=== PATIENT | male | born 1950 | race Caucasian/White ===

== ENCOUNTER → 2019-03-01 09:45 | Outpatient (POV) | payer MEDICARE, MEDICAID, SELFPAY | PROVIDERS: PCP Nurse Practitioner Family; Visit Provider Nurse Practitioner Family | DX: Z00.00 Encounter for general adult medical examination without abnormal findings (principal) ==

== ENCOUNTER 2020-02-10 18:22 | Emergency (ER) | payer MEDICARE, MEDICAID, SELFPAY ==
[2020-02-10 18:29] VITALS: BP 143/84; PULSE 75; RESP 18; TEMP 36.7; O2SAT 98; BMI 35.4
[2020-02-10 18:46] VITALS: BP 143/84; PULSE 75; RESP 18; TEMP 36.7; O2SAT 98; BMI 35.3
--- NOTE | 2020-02-10 18:49 | HMH.EDUTC ---
[facility] [place] Impression: Laceration Disposition: Home, Self-Care Condition on Discharge: Good Instructions: How to Care for a Laceration After Repair, Laceration Repair, DI for Laceration Repair -- Simple Additional Instructions: You have required stitches today. Please read the following instructions so you know how to care for them: 1. Keep wound area dry for the first 24 hours. 2 May clean gently with mild soap and water, after 48 hours to prevent crusting over suture knots. 3. You may shower if your provider gives permission but do not take a bath until the skin is healed.. 4. Never leave a wet dressing or Band-Aid on your stitches as this allows bacteria to reach the area and may cause infection. Band-aids can cause the wound to sweat and not recommended to wear for long periods of time No Bandaids on wound Watch for signs of infection: Increasing redness, tenderness or warmth around the suture site Unusual swelling around the site Appearance of pus around each suture or any red streaks Fever If you develop any of the above signs or symptoms of infection, Follow up with Family Physician immediately 5. Suture removal in __7-10__days 6. Return to [facility] or follow up with family doctor for removal. This can be done by any medical provider during regular hours on Friday through Friday, by appointment. Follow up with family doctor Straight to ER if any life threatening symptoms Referrals: Yohana Mojica APRN [Primary Care Provider] - As needed Time of Disposition: 19:37 Medical Decision Making - Raudel Inquiry Pt receiving controlled substance: No Raudel was queried for this patient: No Vital Signs: 02/10/20 18:29 02/10/20 18:46 Temperature 98.0 F 98.0 F Temperature Source Oral Oral Pulse Rate [Radial] 75 75 Respiratory Rate 18 18 Blood Pressure [Right Arm] 143/84 H 143/84 H Blood Pressure Mean [Right Arm] 103 103 Blood Pressure Source [Right Arm] Automatic Cuff Automatic Cuff Blood Pressure Position [Right Arm] Sitting Sitting 02 Sat by Pulse Oximetry 98 98 Oxygen Delivery Method Room Air Room Air - Reevaluation(s) Time: 18:56 Reevaluation #1: Reports last tetanus about a year ago [facility] [place] - General Stated complaint: AO [id number]@1800 lac to L Hand Time Seen by Provider: 02/10/20 18:49 Mode of Arrival: Ambulatory Source of Information: Patient Limitations: No Limitations Description of Symptoms (Recalled from Triage Doc. by RN): left hand cut by a ice grinder - History of Present Illness Provider Complaint: Patient states that he was using a ice grinder at home and slipped and the top of his left hand hit the blade on the wheel causing laceration to the top of his left hand States that he immediately applied pressure and knew it would have to have stiches so he came in - Related Data Home Medications Medication Instructions Recorded Confirmed lisinopriL [Lisinopril 10mg Tab] 10 mg PO DAILY 04/12/19 02/10/20 Allergies Allergy/AdvReac Type Severity Reaction Status Date / Time No Known Allergies Allergy Verified 04/12/19 07:23 [facility] History - Hepatitis A Screen Attestation statement:: This patient has been screened for Hepatitis A risk factors. I have reviewed the patient's past medical history: Yes Medical History: Reports:: Hypertension Denies:: Diabetes Mellitus Type 1, Diabetes Mellitus Type 2, Internal Pacemaker, Lung Disease, Seizures Other Surgeries: Yes: Other. No: Pacemaker - Social History Substance Use Type: denies use Occupational Status: other Family Hx:: No significant family history ROS Obtained: Yes All systems reviewed & no additional complaints, Yes Systems reviewed as appropriate & no additional complaints - Allergic/Immunologic Comments: laceration to top of left hand Physical Exam - General General appearance: alert, in no apparent distress - Respiratory Respiratory exam: Present: normal lung sounds bilaterally. Absent: respiratory
[2020-02-10 19:39] VITALS: BP 143/84; PULSE 75; RESP 18; TEMP 36.7; O2SAT 98
== END 2020-02-10 19:41 | disposition home or self-care (01) ==
PROVIDERS: Emergency Provider Nurse Practitioner; PCP Nurse Practitioner Family
DX: S61.412A Laceration without foreign body of left hand, initial encounter (principal); W31.89XA Contact with other specified machinery, initial encounter; Y92.018 Other place in single-family (private) house as the place of occurrence of the external cause; I10 Essential (primary) hypertension; Z79.899 Other long term (current) drug therapy
CPT/HCPCS: 12001; 99201

== ENCOUNTER 2021-05-15 11:50 | Emergency (ER) | payer MEDICARE, MEDICAID, SELFPAY ==
[2021-05-15 13:12] VITALS: BP 177/100; PULSE 64; RESP 18; TEMP 36.8; O2SAT 97; BMI 35.2
--- NOTE | 2021-05-15 13:27 | HMH.EDUTC ---
[facility] [place] Clinical Impression: Cyst of face Cellulitis Qualifiers: Site of cellulitis: face Qualified Code(s): L03.211 - Cellulitis of face Disposition: Home, Self-Care Condition on Discharge: Good Instructions: Cellulitis, Boil Additional Instructions: Apply warm wet compresses to the affected sites three or four times per day for 15 minutes as tolerated. Take the antibiotics as directed. Apply the ointment to the site as directed. Follow up with your regular doctor. GO TO THE ER FOR ANY WORSENING SYMPTOMS OR CONCERNS Referrals: Provider,Referral, MD [Primary Care Provider] - Time of Disposition: 14:05 Medical Decision Making - Medical Records Medical records reviewed: No: I reviewed the patient's medical records. - Raudel Inquiry Pt receiving controlled substance: No Vital Signs: 05/15/21 13:12 05/15/21 14:24 Temperature 98.2 F 98.2 F Temperature Source Oral Temporal Artery Scan Pulse Rate 64 Pulse Rate [Left] 64 Respiratory Rate 18 16 Blood Pressure 177/100 H Blood Pressure [Right Arm] 177/100 H Blood Pressure Mean [Right Arm] 125 Blood Pressure Position Sitting 02 Sat by Pulse Oximetry 97 Oxygen Delivery Method Room Air Orders (Tests/Meds): ED MEDICATIONS Discontinued Medications Generic Name Dose Route Start Last Admin Trade Name Freq PRN Reason Stop Dose Admin Ceftriaxone Sodium 1 gm 05/15/21 14:05 05/15/21 14:10 Ceftriaxone 1gm Vial IM 05/15/21 14:06 1 gm ONCE ONE Administration Lidocaine HCl 0 ml 05/15/21 14:05 05/15/21 14:10 Lidocaine 1% 5ml Pf Vial IM 05/15/21 14:06 5 ml ONCE ONE Administration ORDERS Category Date Time Status Wound Culture and Gram Stain Stat Micro 05/14/21 13:36 Results [facility] [place] HPI - General Stated complaint: lump under left eye, getting larger Time Seen by Provider: 05/15/21 13:28 Mode of Arrival: Ambulatory Source of Information: Patient Limitations: No Limitations Description of Symptoms (Recalled from Triage Doc. by RN): pt has had a growth on the innner corner of his lower L eyelid. the past few days it has enlarged twice the size and is now oozing greenish/purulent drainage. HEENT Symptoms (Recalled from RN notes): Yes (infected growth on L lower eyelid with purulent drainage) Resp Symptoms (Recalled from RN notes): No Skin Symptoms (Recalled from RN notes): No MS Symptoms (Recalled from RN notes): No Functional Status (Recalled from RN notes): na - History of Present Illness Provider Complaint: He states that he has a painful swollen area near the medial corner of his left eye. He has had a lesion there for a long time, but over the past few days it seems like it has got infected and it has became inflamed and larger. It is draining some yellowish drainage. He denies any eye pain. He denies any change in his vision. He denies any fever or chills or feeling bad. - Related Data Home Medications Medication Instructions Recorded Confirmed No Known Home Medications 05/15/21 05/15/21 Allergies Allergy/AdvReac Type Severity Reaction Status Date / Time No Known Allergies Allergy Verified 05/15/21 14:22 - Worker's Comp Is this a Worker's Comp case?: No [facility] History - Hepatitis A Screen Drug use history?: No High risk sexual behaviors?: No History of sexually transmitted infection?: No Currently employed?: No Childcare worker?: No Do you have indoor plumbing?: Yes Do you have electricity?: Yes Attestation statement:: This patient has been screened for Hepatitis A risk factors. I have reviewed the patient's past medical history: Yes Medical History: Reports:: Hypertension Denies:: Diabetes Mellitus Type 1, Diabetes Mellitus Type 2, Internal Pacemaker, Lung Disease, Seizures Other Surgeries: Yes: Other. No: Pacemaker - Social History Alcohol Intake: never Substance Use Type: denies use Occupational Status: other Family Hx:: No significant family history ROS O
[2021-05-15 14:24] VITALS: BP 177/100; PULSE 64; RESP 16; TEMP 36.8; O2SAT 97
== END 2021-05-15 14:25 | disposition home or self-care (01) ==
PROVIDERS: Emergency Provider Nurse Practitioner Family
DX: L03.211 Cellulitis of face (principal)
CPT/HCPCS: 10060; G0463; 87070; 87077; 87186; 87205; 96372; 99203

== ENCOUNTER 2023-11-04 06:40 | Day surgery (SDC) | payer MEDICARE, MEDICAID, SELFPAY ==
[2023-10-31 12:52] VITALS: BMI 33.7
[2023-11-04 06:57] VITALS: BP 165/88; PULSE 58; RESP 16; TEMP 36.3; O2SAT 97
[2023-11-04] MEDS: CYCLOPENTOLATE 2% OPHTH SOLN 2ML BOTTLE OP ×3 (07:00→07:10)
[2023-11-04] MEDS: PHENYLEPHRINE 2.5% OPHTH SOLN 2ML 0.0500000000000000028 ML OP ×3 (07:00→07:10)
[2023-11-04] MEDS: TETRACAINE 0.5% OPTH SOL 15ML OP ×3 (07:00→07:10)
[2023-11-04 08:18] VITALS: BP 165/95; PULSE 59; RESP 16; O2SAT 99
[2023-11-04] MEDS: MIDAZOLAM 2MG/2ML VIAL 1 MG IV (08:18)
[2023-11-04] MEDS: TOBRAMYCIN/DEX OPTH SUSP 2.5ML OP (08:19)
[2023-11-04] MEDS: LIDOCAINE 1% PF 2ML AMPULE 2 ML IJ (08:19)
[2023-11-04] MEDS: TIMOLOL 0.5% OPTH SOLN 5ML OP (08:20)
[2023-11-04] MEDS: SODIUM CHLORIDE 0.9% 10ML FLUSH SYRINGE 10 ML IV (08:20)
[2023-11-04 08:23] VITALS: BP 164/92; PULSE 57; RESP 16; O2SAT 96
[2023-11-04 08:28] VITALS: BP 160/94; PULSE 58; RESP 16; O2SAT 97
[2023-11-04] MEDS: MIDAZOLAM 2MG/2ML VIAL 2 MG (08:28)
[2023-11-04 08:33] VITALS: BP 161/92; PULSE 56; RESP 16; O2SAT 96
[2023-11-04 08:40] VITALS: BP 154/96; PULSE 98; RESP 16; TEMP 36.4; O2SAT 99
--- NOTE | 2023-11-04 11:18 | HMH.PROCNOTE ---
[facility] Procedure Note Date: 11/04/23 Time: 11:18 Procedure Note:: Preoperative Diagnosis: Cataract combined NS Cortical Complex [Left] Eye Postop diagnosis: same Operation: Microscopic phacoemulsification with intraocular lens implant [Left] Eye Specimen: None Blood Loss: None The patient was examined in the office with a complaint of poor vision in the [left] eye. The patient reports that this interferes with ADLs such as reading, watching TV and/or driving or the vision is like looking through a foggy haze and is very troubling. The patient was examined and found to have a visually significant cataract with best corrected vision of [20/400] by refraction and/or glare testing. Treatment options, risks and benefits were explained and the patient elected to have cataract surgery in an attempt to improve their vision. The patient had the eye anesthetized with topical tetracaine, the eye ways prepped and draped in the usual fashion for cataract surgery. A paracentesis and a temporal keratotomy were made. 0.2cc of 1% lidocaine PF was placed into the anterior chamber. And aqueous/viscoelastic exchange was done and a 360 degree capsulorexis was performed. Through hydrodissection and delineation with BSS on a cannula was done. The lens nucleus was phecoemulsified with CDE of [12.24]. Residual cortical material was removed using automated I&A The capsular bag was deepened with viscoelastica and a PCIOL was placed in the capsular bag with good centration and stability. Residual viscoelastic was removed using automated I&A. The keratotomy incision was hydrated with BSS on a cannula. The wound were checked and found to be water tight. IOP was checked digitally and adjusted as needed so as not to be too high. 1 drop of timolol 0.5%, ofloxacin, prednisolone acetate and ketorolac was instilled and eye shield taped over the eye. The patient was taken to recovery in good condition and will be seen postoperatively.
== END 2023-11-04 08:50 | disposition home or self-care (01) ==
PROVIDERS: PCP Nurse Practitioner Family; Visit Provider Ophthalmology
PROC: (CPT 66984; principal; 2023-11-04 08:00)
DX: H25.812 Combined forms of age-related cataract, left eye (principal)
CPT/HCPCS: 66984; V2632

== ENCOUNTER 2023-11-25 08:33 | Day surgery (SDC) | payer MEDICARE, MEDICAID, SELFPAY ==
[2023-11-20 13:36] VITALS: BMI 33.7
[2023-11-25] VITALS (8 sets, daily range): BP systolic 146–180; BP diastolic 77–103; PULSE 56–64; RESP 18; TEMP 36.3–36.6; O2SAT 93–99
[2023-11-25] MEDS: TETRACAINE 0.5% OPTH SOL 15ML OP ×3 (09:14→09:15)
[2023-11-25] MEDS: PHENYLEPHRINE 2.5% OPHTH SOLN 2ML OP ×3 (09:14→09:16)
[2023-11-25] MEDS: CYCLOPENTOLATE 2% OPHTH SOLN 2ML BOTTLE OP ×3 (09:14→09:15)
[2023-11-25] MEDS: MIDAZOLAM 2MG/2ML VIAL 1 MG IV (10:01)
[2023-11-25] MEDS: SODIUM CHLORIDE 0.9% 10ML FLUSH SYRINGE 10 ML IV (10:10)
[2023-11-25] MEDS: LIDOCAINE 1% PF 2ML AMPULE 2 ML IJ (10:11)
[2023-11-25] MEDS: TIMOLOL 0.5% OPTH SOLN 5ML OP (10:11)
[2023-11-25] MEDS: TOBRAMYCIN/DEX OPTH SUSP 2.5ML OP (10:11)
--- NOTE | 2023-11-25 12:30 | P.PCN_ITS ---
[facility] Procedure Note Date: 11/25/23 Time: 12:31 Procedure Note:: Preoperative Diagnosis: Cataract combined NS Cortical Complex [Right] Eye Postop diagnosis: same Operation: Microscopic phacoemulsification with intraocular lens implant [Right] Eye Specimen: None Blood Loss: None The patient was examined in the office with a complaint of poor vision in the [right] eye. The patient reports that this interferes with ADLs such as reading, watching TV and/or driving or the vision is like looking through a foggy haze and is very troubling. The patient was examined and found to have a visually significant cataract with best corrected vision of [20/400] by refraction and/or glare testing. Treatment options, risks and benefits were explained and the patient elected to have cataract surgery in an attempt to improve their vision. The patient had the eye anesthetized with topical tetracaine, the eye ways prepped and draped in the usual fashion for cataract surgery. A paracentesis and a temporal keratotomy were made. 0.2cc of 1% lidocaine PF was placed into the anterior chamber. And aqueous/viscoelastic exchange was done and a 360 degree capsulorexis was performed. Through hydrodissection and delineation with BSS on a cannula was done. The lens nucleus was phecoemulsified with CDE of [12.36]. Residual cortical material was removed using automated I&A The capsular bag was deepened with viscoelastica and a PCIOL was placed in the capsular bag with good centration and stability. Residual viscoelastic was removed using automated I&A. The keratotomy incision was hydrated with BSS on a cannula. The wound were checked and found to be water tight. IOP was checked digitally and adjusted as needed so as not to be too high. 1 drop of timolol 0.5%, ofloxacin, prednisolone acetate and ketorolac was instilled and eye shield taped over the eye. The patient was taken to recovery in good condition and will be seen postoperatively.
== END 2023-11-25 10:36 | disposition home or self-care (01) ==
PROVIDERS: PCP Nurse Practitioner Family; Visit Provider Ophthalmology
PROC: (CPT 66984; principal; 2023-11-25 10:30)
DX: H25.11 Age-related nuclear cataract, right eye (principal); H53.8 Other visual disturbances
CPT/HCPCS: 66984; V2632